=== PATIENT | male | born 1945 | race Caucasian/White ===

== ENCOUNTER 2023-12-26 08:29 | Day surgery (SDC) | payer MEDICARE ==
[2023-12-21 11:32] VITALS: BMI 23.7
[~2023-12-26 08:29] MED LIST: LACTATED RINGERS 1,000 ML IV SCH
[2023-12-26] MEDS: IV FLUID CONTINUATION 1,000 ML IV ONE (08:44)
[2023-12-26 08:54] VITALS: TEMP 97.4
[2023-12-26] MEDS: SODIUM CHLORIDE 0.9% 500 ML 500 ML IV SCH (09:02)
[2023-12-26 09:33] LABS: African American GFR (CKD) 66 (>60 ml/min/1.73 sqM); Anion Gap 8 mmol/L; Blood Urea Nitrogen 33 mg/dL (9-20); Carbon Dioxide 26 mmol/L (22-30); Chloride 103 mmol/L (98-107); Glucose 140 mg/dL (74-99); Non-African American GFR(CKD) 58 (>60 ml/min/1.73 sqM); Sodium 137 mmol/L (137-145)
[2023-12-26 09:39] LABS: Potassium 4.1 mmol/L (3.5-5.1)
[2023-12-26] MEDS ORDERED: PROPOFOL 10 MG/ML 20 ML VIAL IV ONE (09:50)
[2023-12-26] MEDS ORDERED: LIDOCAINE 2% (PF) 20 MG/ML 5 ML VIAL ONE (09:50)
[2023-12-26] MEDS: BENZOCAINE SPRAY 1 EACH MM ONE (10:02)
--- NOTE | 2023-12-26 10:23 | P.TEE ---
Description of Procedure(s): Procedure performed: Transesophageal Echocardiogram with color flow doppler, pulsed wave doppler and continuous wave doppler, synchronized cardioversion Moderate conscious sedation: Moderate conscious sedation was supplied by anesthesia, see separate report. Complications: none Indications: atrial fibrillation PROCEDURE: After the risks, benefits and alternatives of the above mentioned procedure was explained in detail with the patient, informed consent was obtained. Patient was brought to the lab in a fasting state. Patient was given sedation by anesthesia, see separate report. The throat was sprayed with Hurricane to anesthetize the throat. A lubricated Omni probe was then introduced into the esophagus and stomach and multiple views were obtained. 2D echo with color flow doppler, pulsed wave doppler and continuous wave doppler was utilized. Agitated saline bubbles were injected to assess for any intra-atrial shunt. The probe was then removed. There was no thrombus noted and therefore patient underwent synchronized cardioversion x 1 with 200J with resultant sinus rhythm. Patient tolerated the procedure well. Patient was transferred to the post procedure area in stable and satisfactory condition. FINDINGS: 1. The aortic valve is tricuspid and function normally with mild aortic sclerosis. 2. The mitral valve appears be normal with moderate central regurgitation]. 3. Tricuspid valve appears to be normal with [id number] tricuspid regurgitation. 4. The interatrial septum is intact. No evidence of PFO. 5. Left atrial appendage is free of clot. 6. Left ventricular ejection fraction 35% with global hypokinesis
[2023-12-26 10:29] VITALS: RESP 16
[2023-12-26 11:08] VITALS: BP 143/85; PULSE 57
== END 2023-12-26 11:25 | disposition home or self-care (01) ==
LOC: OR 08:29
PROVIDERS: ATTEND Internal Medicine
CPT/HCPCS: 80048; 92960; 93312; 93320; 93325

== ENCOUNTER 2024-10-03 09:32 | Day surgery (SDC) | payer MEDICARE ==
[~2024-10-03 09:32] MED LIST changes: +ALPRAZolam 0.25 MG TAB PO PRN; +ALPRAZolam 0.5 MG TAB PO PRN; +HEPARIN SODIUM,PORCINE (1 ML) 2,500 UNIT in SODIUM CHLORIDE 0.9% 250 ML IRRIGATION PRN; +HEPARIN SODIUM,PORCINE 10,000 UNIT in SODIUM CHLORIDE 0.9% 1,000 ML IRRIGATION PRN; -LACTATED RINGERS 1,000 ML IV SCH; +NITROGLYCERIN SL TABS 0.4 MG TAB SUBLINGUAL PRN
[2024-10-03] MEDS: SODIUM CHLORIDE 0.9% 1,000 ML in EMPTY BAG 1 BAG IV SCH (10:21)
[2024-10-03] MEDS: ATORVASTATIN 80 MG TAB PO STA (10:23)
[2024-10-03] MEDS: ASPIRIN 325 MG TAB PO STA (10:23)
[2024-10-03 10:25] VITALS: RESP 16; TEMP 97.6
[2024-10-03 10:26] LABS: Basophils # (A) 0.03 10*3/uL (0.00-0.10); Basophils % (A) 0.5 %; Eosinophils # (A) 0.05 10*3/uL (0.04-0.35); Eosinophils % (A) 0.8 %; HCT 45.7 % (39.6-50.0); HGB 16.2 g/dL (13.0-17.0); Lymphocytes # (A) 0.78 10*3/uL (0.90-5.00); Lymphocytes % (A) 12.8 %; MCH 33.8 pg (27.0-32.0); MCHC 35.4 g/dL (32.0-37.0); MCV 95.4 fL (80.0-97.0); Monocytes # (A) 0.86 10*3/uL (0.20-1.00); Monocytes % (A) 14.1 %; Neutrophils # (A) 4.37 10*3/uL (1.80-7.70); Neutrophils % (A) 71.5 %; Platelet Count 220 10*3/uL (140-440); RBC 4.79 10*6/uL (4.40-5.60); RDW 12.0 % (11.5-14.5); WBC 6.11 10*3/uL (4.50-10.00)
[2024-10-03] MEDS: IV FLUID CONTINUATION 1,000 ML IV ONE (10:27)
[2024-10-03 10:53] LABS: African American GFR (CKD) 41 (>60 ml/min/1.73 sqM); Anion Gap 10 mmol/L; Blood Urea Nitrogen 44 mg/dL (9-20); Calcium 9.5 mg/dL (8.4-10.2); Carbon Dioxide 27 mmol/L (22-30); Chloride 94 mmol/L (98-107); Glucose 136 mg/dL (74-99); Non-African American GFR(CKD) 36 (>60 ml/min/1.73 sqM); Potassium 4.2 mmol/L (3.5-5.1); Sodium 131 mmol/L (137-145)
[2024-10-03] MEDS: HEPARIN SODIUM,PORCINE (1 ML) 2,500 UNIT in SODIUM CHLORIDE 0.9% 250 ML IRRIGATION ONE (13:38)
[2024-10-03] MEDS: HEPARIN SODIUM (1,000 UNIT/ML) 1,000 UNIT in SODIUM CHLORIDE 0.9% 1,000 ML IRRIGATION ONE (13:38)
[2024-10-03] MEDS: MIDAZOLAM 2 MG/2 ML VIAL IVP ONE (13:56)
[2024-10-03] MEDS: fentaNYL (PF) 50 MCG/1 ML VIAL IVP ONE (13:56)
[2024-10-03] MEDS: LIDOCAINE 1% INJ 10MG/ML (20 ML MDV) SQ ONE (13:57)
[2024-10-03] MEDS: VERAPAMIL SYRINGE (5 MG/10 ML) INTRAARTER ONE (13:58)
[2024-10-03] MEDS: HEPARIN SODIUM 1,000 UN/ML (10ML VL) IVP ONE ×2 (14:02→14:12)
[2024-10-03] MEDS: IOPAMIDOL-370 100ML BTL INJ ONE (14:13)
--- NOTE | 2024-10-03 14:20 | P.CARDCATH ---
Description of Procedure: PROCEDURES PERFORMED: Left heart catheterization, bilateral coronary angiography, ultrasound guided arterial access, iFR of LAD INDICATION: Cardiomyopathy CONSENT:I have discussed the risks, benefits and alternative therapies for the above-mentioned procedure and for both sedation/analgesia as well as necessary blood product administration, if indicated, as they pertain to this patient. The patient has indicated understanding and acceptance of the risks and procedures discussed. PROCEDURE: After the risks, benefits and alternatives of the above mentioned procedure explained in detail with the patient, informed consent was obtained. Patient was taken to the catheterization lab and prepped and draped in usual fashion. Ultrasound guidance was used to assess for arterial access. 1% lidocaine was used to anesthetize the right radial artery. A 6-Ukrainian sheath was placed in the right radial artery using modified Seldinger technique and ultrasound guidance. Left coronary angiography was performed with a 5-[place]rainian JL 3.5 catheter and right coronary angiography was performed with a 5-[place] FR5 catheter in various views. A 5-[place] FR5 catheter was inserted into the left ventricle and pressure measurements were obtained. The decision was made to perform functional assessment of the LAD given it was somewhat intermediate with supplying a large territory of myocardium. Heparin had been given. Using the FL 3.5, a 0.014 pressure wire was advanced into the left main and normalized. It was then advanced to the mid LAD approximately 1 cm distal to the lesion and IFR was normal at 0.98. The right radial sheath was removed and a TR band was placed with hemostasis achieved. The patient tolerated the procedure well. Patient was transported back to the post catheterization holding area in stable condition. Conscious Sedation: Patient was monitored under the direct supervision of myself for conscious sedation using Versed and fentanyl for a total duration of 16 minutes HEMODYNAMICS: Aorta: 134/98 LV: 138/5, LVEDP 14 SELECTIVE CORONARY ARTERIOGRAPHY: LEFT MAIN: The left main is a large caliber vessel which bifurcates into the LAD and circumflex. There is no significant stenosis. LEFT ANTERIOR DESCENDING CORONARY ARTERY: LAD is a large caliber vessel which wraps around to the apex. There is proximal LAD 30% stenosis and a 40 to 50% mid LAD stenosis and otherwise mild luminal irregularities LEFT CIRCUMFLEX CORONARY ARTERY: Left circumflex is a moderate caliber vessel with mild luminal irregularities. RIGHT CORONARY ARTERY: The right coronary artery is a large caliber vessel which gives off a PDA and PLV branch and is the dominant vessel. There is a proximal 30% RCA stenosis. FINAL IMPRESSION: 1. Mild to moderate CAD as described above including 30% RCA, 40 to 50% mid LAD stenosis 2. Normal left sided filling pressures 3. IFR normal of LAD at 0.98 PLAN: 1. Aggressive risk factor modification per most recent ACC/AHA guidelines. 2. Follow-up in the office in 1-2 weeks.
[2024-10-03 18:03] VITALS: BP 124/78; PULSE 62
== END 2024-10-03 17:30 | disposition home or self-care (01) ==
LOC: CATHCVL 09:32
PROVIDERS: ATTEND Internal Medicine
DX: I25.10 Atherosclerotic heart disease of native coronary artery without angina pectoris (principal); I42.9 Cardiomyopathy, unspecified
CPT/HCPCS: 80048; 85025; 93458; 93799